=== PATIENT | male | born 2005 | race Caucasian/White ===

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

== ENCOUNTER 2023-01-25 12:25 | Emergency (ER) | payer MEDICAID ==
[~2023-01-25] VITALS: Ht 190.5 cm; Wt 99.8 kg
[2023-01-25 12:28] VITALS: BP 134/82; PULSE 68; TEMP 98.6; O2SAT 96
[2023-01-25 12:59] VITALS: RESP 18
[2023-01-25] MEDS ORDERED: TRIA15CR61 TOP (14:54)
[2023-01-25] MEDS ORDERED: DIPH25CA83 PO (14:54)
--- NOTE | 2023-01-25 15:23 | NUR ---
[employer] OPERATOR ASSESSMENT REVIEWED BY SHARRI RN; APPROVED
== END 2023-01-25 15:03 | disposition home or self-care (01) ==
LOC: ER 12:26
DX: R21 Rash and other nonspecific skin eruption (principal); F17.200 Nicotine dependence, unspecified, uncomplicated; Z53.21 Procedure and treatment not carried out due to patient leaving prior to being seen by health care provider
CPT/HCPCS: 99282